=== PATIENT | male | born 1990 | race African-American/Black ===

== ENCOUNTER 2022-01-16 12:17 | Emergency (ER) | payer SELFPAY ==
[~2022-01-16] VITALS: Ht 182.9 cm; Wt 78.0 kg
[2022-01-16] MEDS ORDERED: FOLIC ACID 1 MG, THIAMINE HCL 100 MG, MVI, ADULT NO.1 10 ML in DEXTROSE 5% WATER 1,000 ML IV ONE ×4 (13:00)
[2022-01-16 14:09] LABS: BASOPHILS % 0.8 % (0.0-2.0); EOSINOPHILS % 2.3 % (0.0-5.0); HEMATOCRIT. 34.6 % (42.0-52.0); HEMOGLOBIN. 11.9 g/dL (14.0-18.0); MEAN CORPUSCULAR VOLUME 84.5 fL (80.0-94.0); MEAN PLATELET VOLUME 6.6 fl (7.4-10.4); MONOCYTES % 7.5 % (2.0-8.0); NEUTROPHILS % 62.4 % (40.0-76.0); PLATELET 253 x1000/uL (130-400); RED BLOOD CELL COUNT 4.09 mill/uL (4.7-6.1); RED CELL DISTRIBUTION WIDTH 13.9 % (11.6-14.6)
[2022-01-16 14:16] LABS: CHLORIDE 106 mEq/L (98-107)
[2022-01-16 14:29] LABS: ETHANOL BLOOD 402 mg/dL
[2022-01-16 16:37] VITALS: BP 121/73
[2022-01-17] MEDS ORDERED: IBUP-2028 MT (13:14)
== END 2022-01-16 19:38 | disposition home or self-care (01) ==
LOC: ER 12:17
DX: F10.129 Alcohol abuse with intoxication, unspecified (principal); Y90.8 Blood alcohol level of 240 mg/100 ml or more; Z87.891 Personal history of nicotine dependence
CPT/HCPCS: 36415; 70450; 80053; 80320; 85025; 96365; 96366; 99284; J3411; J3490; J7070; G0480

== ENCOUNTER 2022-01-17 10:58 | Emergency (ER) | payer SELFPAY ==
[~2022-01-17] VITALS: Ht 185.4 cm; Wt 80.0 kg
[2022-01-17] MEDS ORDERED: SODIUM CHLORIDE 0.9% 1,000 ML IV ONE (11:30)
[2022-01-17 11:47] LABS: BASOPHILS % 0.5 % (0.0-2.0); EOSINOPHILS % 0.6 % (0.0-5.0); HEMATOCRIT. 32.3 % (42.0-52.0); HEMOGLOBIN. 11.1 g/dL (14.0-18.0); LYMPHOCYTES % 25.7 % (20.0-50.0); MEAN CORPUSCULAR HEMOGLOBIN 29.6 pg (28.0-32.0); MEAN CORPUSCULAR VOLUME 85.8 fL (80.0-94.0); MEAN PLATELET VOLUME 6.4 fl (7.4-10.4); MONOCYTES % 10.7 % (2.0-8.0); NEUTROPHILS % 62.5 % (40.0-76.0); PLATELET 252 x1000/uL (130-400); RED BLOOD CELL COUNT 3.76 mill/uL (4.7-6.1); RED CELL DISTRIBUTION WIDTH 14.3 % (11.6-14.6)
[2022-01-17 11:59] LABS: CHLORIDE 105 mEq/L (98-107)
[2022-01-17 12:28] LABS: ETHANOL BLOOD 425 mg/dL
[2022-01-17] MEDS ORDERED: IBUP-2028 MT (13:14)
[2022-01-17 16:22] VITALS: BP 114/62
== END 2022-01-17 16:22 | disposition home or self-care (01) ==
LOC: ER 11:04
DX: T51.0X1A Toxic effect of ethanol, accidental (unintentional), initial encounter (principal); S02.32XA Fracture of orbital floor, left side, initial encounter for closed fracture; S00.83XA Contusion of other part of head, initial encounter; R94.31 Abnormal electrocardiogram [ECG] [EKG]; Y90.8 Blood alcohol level of 240 mg/100 ml or more; X58.XXXA Exposure to other specified factors, initial encounter; Y92.488 Other paved roadways as the place of occurrence of the external cause
CPT/HCPCS: 36415; 70450; 70486; 71045; 80053; 80307; 80320; 80329; 84484; 85025; 93005; 96360; 99285; J7030; G0480